=== PATIENT | female | born 1970 | race Caucasian/White ===

== ENCOUNTER 2018-10-15 10:23 | Day surgery (SDC) | payer OTHER, SELFPAY ==
[2018-10-15 10:44] VITALS: BP 127/85; PULSE 80; RESP 16; TEMP 36.2; O2SAT 100; BMI 32.1
--- NOTE | 2018-10-15 11:55 | POL_PTH ---
PATIENT: GINA VELASQUEZ LOC: [facility] [place][id number] AGE/SX: 47/F ROOM: RE10/15/[address]: Dr. Osman Smith MD : [id number] BED: DIS: 10/15/2018 SPEC #: [id number] RECD: 10/15/18 16:35 STATUS: NELLI JANNETH #: [id number] CHRISTY: 10/15/18 11:[address]: Osman Smith DEPT: SURGICAL PATHOLOGY RECD BY: Emmanuel Bray ENTERED: 10/18/18 08:45 SP TYPE: Polyp OTHR DR: HIRAM Panda Tissues: Vocal cord, NOS Procedures: Surgery Specimen Level IV HEADER OPERATION: Direct microscopic laryngoscopy PRE-OP DIAGNOSIS: Vocal cord polyp TISSUE SUBMITTED: Right vocal cord polyp MICROSCOPIC DIAGNOSIS Right vocal cord polyp, biopsy: Benign vocal cord polyp. SJ:cassandra 10/19/18 MICROSCOPIC DESCRIPTION Slides are reviewed. GROSS DESCRIPTION Received in fixative is one container labeled with the patient's name and designated right vocal cord polyp. The specimen consists of a fragment of tidwell soft tissue measuring 0.3 x 0.1 x <0.1 cm. The specimen is totally submitted in one cassette. / SJ:rg 10/18/18 TC:5 CPT: 32183
[2018-10-15] MEDS: Lidocaine 4% 50 ML Bottle (13:16)
[2018-10-15] MEDS: Oxymetazoline 0.05% 1 SPRAY SPRAY.BTL 15 SPRAY (13:16)
--- NOTE | 2018-10-15 13:37 | PCM.OPRPT ---
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 She was eager to proceed. The risks, alternatives, potential complications, and benefits were discussed at length and any questions answered to the patient and/or caregiver's satisfaction. Witnessed informed consent was obtained in the office, and the patient and/or caregiver was agreeable to proceed. Procedure went as follows: The patient was identified in the preoperative holding and brought to the operating room, placed under general anesthesia, and intubated. When appropriate anesthesia was obtained, the head of bed was rotated and the patient prepped and draped in usual sterile fashion. A dental guard or moistened gauze was then placed to protect the upper gums and the Dedo laryngoscope then introduced. Direct laryngoscopy was then carried out. The lateral posterior pharyngeal wall mucosa, tonsillar fossa, vallecula, piriforms, and epiglottis were noted to be normal in appearance. The true and false vocal folds were then brought into view. The patient was then placed in suspension and the operative microscope brought into the field. Using pledgets soaked in a 50-50 mixture of oxymetazoline and 4% topical lidocaine the true vocal folds were then topicalized. There is noted to be a small polyp arising from the midpoint of the right true vocal fold. This was then grasped with an atraumatic forceps and sharply resected with a microlaryngeal scissor. This was then sent as permanent pathologic specimen. The excision site was then again topicalized for hemostasis. The pledgets were then removed and the patient taken out of suspension and returned to anesthesia, was revived, and extubated without complication having tolerated the procedure well. Type of Anesthesia:: General Anesthesiologist: Kancherla,Marty Special Medications: none Specimen's removed: right true vocal fold polyp Estimated Blood Loss (mL): 0 mL Fluids Replaced: 1000 mL Grafts/Implants Used: none - Complications none - Admit VTE Documentation VTE Present on Admission: No VTE Mechan Device Prophylaxis: SCD's VTE Pharm Prophylaxis ordered?: No
--- NOTE | 2018-10-15 13:42 | DCINST_ITS ---
- Discharge Diagnoses Current Active Problems: Current Active and Chronic Problems Polyp of vocal cord and larynx (Chronic) Dysphonia (Acute) You will use the following diet at home:: No restrictions Your food should be the consistency of: Regular Discharge Activity: Return to Normal Activity, - - voice rest Call your doctor if your incision/area has: Increased Pain/ Swelling Call your doctor if you observe: Fever of 101 or Higher, Uncontrolled pain Allergies/Adverse Reactions: Allergies No Known Allergies Allergy (Verified 10/15/18 10:41) Medications to take at Discharge Acetaminophen [Tylenol Extra Strength] 500 - 1,000 mg PO Q6H PRN PRN 10/13/18 Estradiol/Norethindrone Acet [Combipatch 0.05-0.14 mg Ptch] 1 ea TD SUTH 10/13/18 Meloxicam [Mobic] 7.5 mg PO DAILY 10/13/18 Phentermine HCl 37.5 mg PO DAILY 10/13/18 Sucralfate [Carafate] 1 gm PO DAILY 10/13/18 Primary Care Physician: Elaine Del Angel NP-C [Primary Care Provider] - Test Results: Test results from this visit will be discussed in further detail at your follow- up appointment, if applicable. Please Follow Up With: Osman Smith MD When: 2 weeks
[2018-10-15 13:47] VITALS: BP 127/85; BP 146/87; TEMP 35.9; O2SAT 96
[2018-10-15 14:00] VITALS: BP 127/85; BP 135/82; PULSE 89; RESP 16; TEMP 36.1; O2SAT 98
[2018-10-15 14:09] VITALS: BP 126/86; BP 127/85; PULSE 88; RESP 16; TEMP 36.1; O2SAT 100
[2018-10-15] MEDS: Ibuprofen 200 MG Tablet 400 MG PO (14:26)
[2018-10-15 14:47] VITALS: BP 127/85; BP 136/76; PULSE 77; RESP 18; TEMP 36.6; O2SAT 100
== END 2018-10-15 15:10 | disposition home or self-care (01) ==
LOC: SDC 10:28 → AC 10:28
PROVIDERS: Family Provider Nurse Practitioner Family; PCP Nurse Practitioner Family; Referring Provider Otolaryngology; Visit Provider Otolaryngology
PROC: 0CJS8ZZ Inspection of Larynx, Via Natural or Artificial Opening Endoscopic (ICD-10-PCS; CPT 31575; principal; 2018-10-15 11:50)
DX: J38.1 Polyp of vocal cord and larynx (principal); R49.0 Dysphonia; K21.9 Gastro-esophageal reflux disease without esophagitis; G47.30 Sleep apnea, unspecified; Z85.41 Personal history of malignant neoplasm of cervix uteri; Z79.899 Other long term (current) drug therapy
CPT/HCPCS: 31536; 88305; J7120; J2405

== ENCOUNTER → 2023-01-08 | Outpatient (CLI) | payer SELFPAY ==
[2023-01-15 11:08] LABS: HPV APTIMA, High Risk Negative (Negative)
== END | disposition home or self-care (01) ==
PROVIDERS: PCP Nurse Practitioner Family; Referring Provider Nurse Practitioner Women's Health; Visit Provider Nurse Practitioner Women's Health
DX: Z12.4 Encounter for screening for malignant neoplasm of cervix (principal)
CPT/HCPCS: 87624; 88175; G0145